=== PATIENT | male | born 1995 ===

== ENCOUNTER 2024-06-28 13:00 | Outpatient (REF) | payer BC, SELFPAY ==
[2024-06-28 21:35] LABS: Abs Immature Grans 0.02 10^3/uL (0.0-0.06); Absolute Basophil Count 0.06 10^3/uL (0.0-0.2); Absolute Eosinophil Count 0.48 10^3/uL (0.0-0.7); Absolute Monocyte Count 0.67 10^3/uL (0.1-0.8); Absolute Neutrophil Count 4.18 10^3/uL (1.2-6.7); Basophils % 0.8 %; Eosinophils % 6.2 %; HCT 47.8 % (40.0-50.0); HGB 16.4 g/dL (13.5-17.5); Immature Grans % 0.3 %; Lymphocytes % 29.8 %; MCH 29.8 pg (27.0-33.0); MCHC 34.3 % (32.0-36.0); MCV 87 fL (80-95); MPV 9.2 fL (8.0-11.0); Monocytes % 8.7 %; Neutrophils % 54.2 %; Platelet Count 281 10^3/uL (130-400); RDW 11.6 % (11.8-14.1); RDW-SD 37.2 fL; WBC 7.71 10^3/uL (4.4-10.8)
[2024-06-28 21:59] LABS: ALT 37 U/L (16-63); AST 31 U/L (15-37); Albumin 4.3 g/dL (3.4-5.0); Alkaline Phosphatase 81 U/L (46-116); BUN 16 mg/dL (7-18); Bilirubin, Total 0.44 mg/dL (0.2-1.0); Calcium 9.6 mg/dL (8.5-10.1); Calculated LDL 84 mg/dL (<100); Chloride 107 mmol/L (98-107); Cholesterol 181 mg/dL (<200); Estimated GFR 104.48 (mL/min/1.73m2); Glucose 104 mg/dL (74-106); HDL Cholesterol 37 mg/dL (40-60); Potassium 4.3 mmol/L (3.5-5.1); Sodium 142 mmol/L (136-145); TSH (W/Ref FT4) 0.91 uIU/mL (0.36-3.74); Total Protein 7.9 g/dL (6.4-8.2); Triglyceride 302 mg/dL (<150)
== END 2024-06-28 13:01 | disposition home or self-care (01) ==
LOC: NCHCN 13:00
PROVIDERS: Visit Provider Family Medicine
DX: R53.83 Other fatigue (principal); Z13.1 Encounter for screening for diabetes mellitus; Z13.220 Encounter for screening for lipoid disorders
CPT/HCPCS: 80053; 80061; 83036; 84443; 85025